=== PATIENT | male | born 1985 | race Caucasian/White ===

== ENCOUNTER 2019-01-04 16:57 | Emergency (ER) | payer OTHER ==
[~2019-01-04] VITALS: Ht 172.7 cm; Wt 108.9 kg
[2019-01-04] MEDS ORDERED: IBU800 MG PO (17:22)
[2019-01-04] MEDS ORDERED: KETOROLAC TROME10 MG PO (17:56)
[2019-01-04] MEDS ORDERED: BACLOFEN10 MG PO (17:56)
[2019-01-04] MEDS ORDERED: NORCO 5-325 TA1 EACH PO (17:56)
== END 2019-01-04 18:21 | disposition home or self-care (01) ==
LOC: ED 16:57
DX: M25.562 Pain in left knee (principal); Z87.891 Personal history of nicotine dependence; Z79.899 Other long term (current) drug therapy
CPT/HCPCS: 73560; 99283

== ENCOUNTER 2020-04-01 13:01 | Emergency (ER) | payer SELFPAY ==
[~2020-04-01] VITALS: Ht 172.7 cm; Wt 113.4 kg
[~2020-04-01 13:01] MED LIST: BACLOFEN10 MG PO; IBU800 MG PO; KETOROLAC TROME10 MG PO; NORCO 5-325 TA1 EACH PO; ZOFRAN4 MG PO
--- NOTE | 2020-04-01 16:36 | EKG ---
[facility] [address] [facility] [place] [address] Signed Sinus bradycardia Incomplete right bundle branch block Minimal voltage criteria for LVH, may be normal variant Borderline ECG When compared with ECG of 01-SEP-2019 13:00, No significant change was found Confirmed by KVNG PARKER MD ([id number]) on 04/01/2020 4:36:32 PM Electronically Signed By: KVNG PARKER MD 04/01/20 1636 PATIENT NAME: NBAINGRID Electrocardiogram DATE OF : 81 PHYSICIAN: KVNG PRAKER MD REPORT #: [id number] REPORT IS CONFIDENTIAL AND NOT TO BE RELEASED WITHOUT AUTHORIZATION
== END 2020-04-01 16:16 | disposition home or self-care (01) ==
LOC: ED 13:01
DX: R00.2 Palpitations (principal); Z87.891 Personal history of nicotine dependence
CPT/HCPCS: 80053; 84443; 85025; 93005; 93010; 99285-25